=== PATIENT | female | born 1930 | race Caucasian/White ===

== ENCOUNTER 2018-07-15 18:02 | Emergency (ER) | payer MEDICARE, OTHER ==
[~2018-07-15] VITALS: Ht 157.5 cm; Wt 43.0 kg
[~2018-07-15 18:02] MED LIST: ALBU8.5H8 INH; CEFD300C37 PO; ESCI10TA10 PO; HYDR-3240 PO; LISI5TAB7 PO; LORA-445 PO; LORA1TAB PO
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
[2018-07-15 18:38] LABS: BASOPHILS # (AUTO) 0.02 x10^3/uL (0-0.1); BASOPHILS % (AUTO) 1 % (0-1); EOSINOPHILS # (AUTO) 0.16 x10^3/uL (0-0.4); EOSINOPHILS % (AUTO) 3 % (1-7); LYMPHOCYTES # (AUTO) 1.17 x10^3/uL (1-3.4); LYMPHOCYTES % (AUTO) 24 % (22-44); MD NO; MEAN CORPUSCULAR HEMOGLOBIN 30.6 pg (27.0-34.8); MEAN CORPUSCULAR HGB CONC 32.5 g/dL (32.4-35.8); MEAN CORPUSCULAR VOLUME 94.2 fL (80-100); MEAN PLATELET VOLUME 7.6 fL (7.4-10.4); MONOCYTES # (AUTO) 0.41 x10^3/uL (0.2-0.8); MONOCYTES % (AUTO) 8 % (2-9); NEUTROPHILS # (AUTO) 3.16 x10^3/uL (1.8-6.8); NEUTROPHILS % (AUTO) 64 % (42-75); PLATELET COUNT 221 x10^3/uL (130-400); RED BLOOD COUNT 3.34 x10^6/uL (3.82-5.3); RED CELL DISTRIBUTION WIDTH 18.1 % (9.6-15.2)
--- NOTE | 2018-07-15 18:43 | NUR ---
Straight cath UA sent to lab.
[2018-07-15 18:47] LABS: INTERNATIONAL NORMALIZED RATIO 0.95 (0.93-1.1)
[2018-07-15 18:50] LABS: ALANINE AMINOTRANSFERASE 20 U/L (12-78); ALBUMIN 3.1 g/dL (3.4-5.0); ANION GAP 7 mmol/L (5-15); CALCIUM 7.6 mg/dL (8.5-10.1); CHLORIDE 109 mmol/L (98-107); CREATININE 0.86 mg/dL (0.55-1.02); SALICYLATE LEVEL 2.2 mg/dL (2.8-20.0)
[2018-07-15 18:52] LABS: MICROSCOPIC NOT IND
[2018-07-15 18:53] LABS: ACETAMINOPHEN < 2 mcg/mL (10-30); ALKALINE PHOSPHATASE 114 U/L (45-117); BILIRUBIN,TOTAL 0.2 mg/dL (0.2-1.0); TOTAL PROTEIN 5.8 g/dL (6.4-8.2)
[2018-07-15 18:54] LABS: CULTURE INDICATED? NO
[2018-07-15 18:59] LABS: ACETONE, SERUM Negative (Negative)
[2018-07-15 19:10] LABS: AMPHETAMINE SCREEN, URINE Negative (Negative); BARBITURATE SCREEN, URINE Negative (Negative); BENZODIAZEPINE SCREEN, URINE Negative (Negative); CANNABINOID SCREEN, URINE Negative (Negative); COCAINE SCREEN, URINE Negative (Negative); METHADONE SCREEN, URINE Negative (Negative); OPIATE SCREEN, URINE Negative (Negative)
--- NOTE | 2018-07-15 19:55 | NUR ---
Voided via bed islas. Repositioned for comfort.
--- NOTE | 2018-07-15 20:24 | NUR ---
A&Ox3, but remains intoxicated. VSS.
[2018-07-15 20:25] VITALS: BP 139/58
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
--- NOTE | 2018-07-15 21:46 | NUR ---
Report to ARUN Vora.
--- NOTE | 2018-07-15 22:00 | NUR ---
report from sita assumed care of pt , pt sleeping at this time
--- NOTE | 2018-07-16 00:23 | NUR ---
ambulated to br and back without difficulty put clothes on, pt discharged to home via cab, pts girl friend keaton was called and notified that pt was on her way home
== END 2018-07-16 00:27 | disposition home or self-care (01) ==
LOC: ED 18:20
DX: F10.129 Alcohol abuse with intoxication, unspecified (principal); J44.9 Chronic obstructive pulmonary disease, unspecified
CPT/HCPCS: 36415; 80053; 80307; 80329; 81003; 82010; 83690; 85025; 85610; 93005; 99284; G0480

== ENCOUNTER 2018-08-14 16:37 | Observation (INO) | payer OTHER ==
[~2018-08-14] VITALS: Ht 165.1 cm; Wt 42.3 kg
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
--- NOTE | 2018-08-14 17:06 | NUR ---
patient leaving for ct scan
--- NOTE | 2018-08-14 17:07 | NUR ---
ct scan cancelled.
--- NOTE | 2018-08-14 17:15 | NUR ---
straight cath'd patient and urine taken to lab.
[2018-08-14 17:39] LABS: MICROSCOPIC NOT IND
[2018-08-14 17:39] LABS: ANION GAP 8 mmol/L (5-15); CALCIUM 8.2 mg/dL (8.5-10.1); CHLORIDE 103 mmol/L (98-107)
[2018-08-14 17:40] LABS: CREATININE 1.11 mg/dL (0.55-1.02)
[2018-08-14 17:41] LABS: CULTURE INDICATED? NO
[2018-08-14 17:42] LABS: AMPHETAMINE SCREEN, URINE Negative (Negative); BARBITURATE SCREEN, URINE Negative (Negative); BENZODIAZEPINE SCREEN, URINE Negative (Negative); CANNABINOID SCREEN, URINE Negative (Negative); COCAINE SCREEN, URINE Negative (Negative); METHADONE SCREEN, URINE Negative (Negative); OPIATE SCREEN, URINE Negative (Negative)
[2018-08-14 17:43] LABS: BASOPHILS # (AUTO) 0.02 x10^3/uL (0-0.1); BASOPHILS % (AUTO) 0 % (0-1); EOSINOPHILS # (AUTO) 0.04 x10^3/uL (0-0.4); EOSINOPHILS % (AUTO) 1 % (1-7); LYMPHOCYTES % (AUTO) 23 % (22-44); MD NO; MEAN CORPUSCULAR HEMOGLOBIN 29.9 pg (27.0-34.8); MEAN CORPUSCULAR HGB CONC 31.9 g/dL (32.4-35.8); MEAN CORPUSCULAR VOLUME 93.7 fL (80-100); MEAN PLATELET VOLUME 7.7 fL (7.4-10.4); MONOCYTES # (AUTO) 0.53 x10^3/uL (0.2-0.8); MONOCYTES % (AUTO) 8 % (2-9); NEUTROPHILS # (AUTO) 4.38 x10^3/uL (1.8-6.8); NEUTROPHILS % (AUTO) 68 % (42-75); PLATELET COUNT 443 x10^3/uL (130-400); RED BLOOD COUNT 3.68 x10^6/uL (3.82-5.3); RED CELL DISTRIBUTION WIDTH 17.1 % (9.6-15.2)
--- NOTE | 2018-08-14 17:52 | NUR ---
patient restless in bed. she is oriented x1 person. she has very mood swings.
--- NOTE | 2018-08-14 18:12 | NUR ---
patient resting off and on, when she wakes up she is restless.
--- NOTE | 2018-08-14 19:22 | NUR ---
Pt sleeping at this time. VSS.
--- NOTE | 2018-08-14 21:32 | NUR ---
Pt sleeping at this time. VSS.
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
[2018-08-15] MEDS ORDERED: SODIUM CHLORIDE FLUSH 10ML SYR IVF PRN (00:30)
--- NOTE | 2018-08-15 00:39 | NUR ---
Per hospitalist, BHARGAVI pt has no IV.
[2018-08-15 01:03] VITALS: BP_SYST 100; BP_SYST 103; BP_DIAS 47; BP_DIAS 59
[2018-08-15] MEDS ORDERED: ONDANSETRON 2MG/ML, 2ML IVPush PRN (01:30)
[2018-08-15] MEDS ORDERED: LORazepam 2 MG/ML, 1ML IVPush PRN (01:30)
[2018-08-15 06:45] VITALS: BP 145/70
[2018-08-15 13:26] LABS: ANION GAP 6 mmol/L (5-15); CALCIUM 8.8 mg/dL (8.5-10.1); CHLORIDE 101 mmol/L (98-107); CREATININE 1.12 mg/dL (0.55-1.02)
[2018-08-15 13:27] LABS: ALBUMIN 3.4 g/dL (3.4-5.0)
[2018-08-15 14:35] VITALS: BP 108/57
== END 2018-08-15 15:20 | disposition home or self-care (01) ==
LOC: ED 22:01 → EDIP 08-15 00:17 → INTOOBSV 08-15 00:17 → 3NW 08-15 00:47 → DCLOUNGE 08-15 15:00
PROVIDERS: ADMIT Internal Medicine; ATTEND Internal Medicine
DX: F10.221 Alcohol dependence with intoxication delirium (principal); F03.90 Unspecified dementia, unspecified severity, without behavioral disturbance, psychotic disturbance, mood disturbance, and anxiety; F41.1 Generalized anxiety disorder; J44.9 Chronic obstructive pulmonary disease, unspecified; Y90.8 Blood alcohol level of 240 mg/100 ml or more; Z72.0 Tobacco use
CPT/HCPCS: 36415; 80048; 80307; 81003; 82040; 85025; 97163; 99284; G0378

== ENCOUNTER → 2019-06-03 | Outpatient (CLI) | payer OTHER ==
[~2019-06-03] MED LIST changes: +OMNIPAQUE 350 MG/ML, 100ML BOTTLE ONE
== END | disposition home or self-care (01) ==
LOC: RAD 13:35
PROVIDERS: ATTEND Internal Medicine Endocrinology, Diabetes & Metabolism
DX: K44.9 Diaphragmatic hernia without obstruction or gangrene (principal); R91.1 Solitary pulmonary nodule; J84.10 Pulmonary fibrosis, unspecified; N20.0 Calculus of kidney; Z87.81 Personal history of (healed) traumatic fracture
CPT/HCPCS: 71260; 74160; Q9967

== ENCOUNTER 2019-12-01 03:13 | Inpatient (IN) | payer OTHER, MEDICAID ==
[2019-12-01] VITALS (9 sets, daily range): BP systolic 84–114; BP diastolic 40–58
[~2019-12-01] VITALS: Ht 167.6 cm; Wt 60.4 kg
[~2019-12-01 03:13] MED LIST changes: -OMNIPAQUE 350 MG/ML, 100ML BOTTLE ONE
[2019-12-01 03:51] LABS: MICROSCOPIC AUTO
[2019-12-01] MEDS ORDERED: CEFTRIAXONE PMX 1GM/50ML 50 ML IV ONE (04:00)
[2019-12-01] MEDS ORDERED: SODIUM CHLORIDE 0.9% 1,000ML IVBOLUS ONE ×3 (04:00→22:30)
[2019-12-01] MEDS ORDERED: CEFTRIAXONE PMX 1GM/50ML 50 ML ONE (04:04)
[2019-12-01 04:17] LABS: MEAN CORPUSCULAR HEMOGLOBIN 30.7 pg (27.0-34.8); MEAN CORPUSCULAR HGB CONC 32.9 g/dL (32.4-35.8); MEAN CORPUSCULAR VOLUME 93.3 fL (80-100); MEAN PLATELET VOLUME 8.9 fL (7.4-10.4); PLATELET COUNT 158 x10^3/uL (130-400); RED BLOOD COUNT 3.23 x10^6/uL (3.82-5.3); RED CELL DISTRIBUTION WIDTH 14.9 % (9.6-15.2)
[2019-12-01] MEDS ORDERED: ACETAMINOPHEN 500 MG TABLET ONE (04:26)
[2019-12-01] MEDS ORDERED: ACETAMINOPHEN 500 MG TABLET PO ONE (04:30)
[2019-12-01 04:32] LABS: CHLORIDE 103 mmol/L (98-107)
[2019-12-01 04:41] LABS: ALANINE AMINOTRANSFERASE 14 U/L (12-78); ALBUMIN 2.9 g/dL (3.4-5.0); ALKALINE PHOSPHATASE 120 U/L (45-117); BILIRUBIN,TOTAL 0.4 mg/dL (0.2-1.0); CALCIUM 8.4 mg/dL (8.5-10.1); CREATININE 1.68 mg/dL (0.55-1.02); MD YES; TOTAL PROTEIN 6.4 g/dL (6.4-8.2); TROPONIN I 0.031 ng/mL (0.000-0.045)
[2019-12-01 04:42] LABS: BAND#(MANUAL) 1.47 x10^3/uL; BANDS%(MANUAL) 7 % (0-7); LYMPH#(MANUAL) 1.89 x10^3/uL (1-3.4); LYMPHS% (MANUAL) 9 % (22-44); MONOS#(MANUAL) 0.42 x10^3/uL (0.3-2.7); MONOS% (MANUAL) 2 % (2-9); SEG#(MANUAL) 17.22 x10^3/uL (1.8-6.8); SEGS% (MANUAL) 82 % (42-75)
[2019-12-01 04:43] LABS: <PLATELET ESTIMATE> ADEQUATE; <PLT MORPHOLOGY> NORMAL PLT MORPH; <RBC MORPHOLOGY> NORMAL
[2019-12-01] MEDS ORDERED: SODIUM CHLORIDE 0.9% 1,000 ML IV ONE (04:54)
[2019-12-01 05:07] LABS: ANION GAP 8 mmol/L (5-15)
[2019-12-01] MEDS ORDERED: SODIUM CHLORIDE 0.9% 1,000 ML IV SCH (07:18)
[2019-12-01] MEDS ORDERED: ONDANSETRON 2MG/ML, 2ML IVPush PRN (07:30)
[2019-12-01] MEDS ORDERED: ACETAMINOPHEN 325 MG TABLET PO PRN (07:30)
[2019-12-01] MEDS ORDERED: LORazepam 2 MG/ML, 1ML IV PRN ×4 (07:30)
[2019-12-01] MEDS ORDERED: LORazepam 1MG TABLET PO PRN ×3 (07:30)
[2019-12-01] MEDS ORDERED: LORazepam 0.5MG TABLET PO PRN (07:30)
[2019-12-01] MEDS ORDERED: ONDANSETRON ODT 4 MG PO PRN (07:30)
[2019-12-01] MEDS: HEPARIN 5,000 UNITS/ML, 1ML SQ SCH ×2 (10:01→16:02)
[2019-12-01] MEDS: THIAMINE 100MG TABLET PO SCH ×2 (10:01→20:32)
[2019-12-01] MEDS: ALBUTEROL HFA 90 MCG/SPRAY INH SCH ×2 (15:30→19:15)
[2019-12-01 17:17] LABS: AMPHETAMINE SCREEN, URINE Negative (Negative); BARBITURATE SCREEN, URINE Negative (Negative); BENZODIAZEPINE SCREEN, URINE Negative (Negative); CANNABINOID SCREEN, URINE Negative (Negative); COCAINE SCREEN, URINE Negative (Negative); METHADONE SCREEN, URINE Negative (Negative); OPIATE SCREEN, URINE Negative (Negative)
[2019-12-01] MEDS: RISPERIDONE 0.5 MG TABLET PO SCH ×2 (18:25→19:23)
[2019-12-01] MEDS ORDERED: DIPHENHYDRAMINE 50 MG/ML, 1ML IVPush PRN (21:30)
[2019-12-01] MEDS: PIPERACILLIN/TAZO/PMX 3.375GM 50 ML IV SCH (21:58)
[2019-12-02 00:44] VITALS: BP 87/43
[2019-12-02] MEDS: HEPARIN 5,000 UNITS/ML, 1ML SQ SCH ×2 (01:55→08:44)
[2019-12-02] MEDS: ALBUTEROL HFA 90 MCG/SPRAY INH SCH (03:00)
[2019-12-02 03:04] VITALS: BP 149/60
[2019-12-02] MEDS ORDERED: ALBUTEROL SULFATE 2.5 MG/3 ML ONE (03:52)
[2019-12-02] MEDS ORDERED: CEFTRIAXONE PMX 1GM/50ML 50 ML IV SCH (04:00)
[2019-12-02 06:17] LABS: MEAN CORPUSCULAR HEMOGLOBIN 30.9 pg (27.0-34.8); MEAN CORPUSCULAR HGB CONC 32.3 g/dL (32.4-35.8); MEAN CORPUSCULAR VOLUME 95.6 fL (80-100); MEAN PLATELET VOLUME 9.3 fL (7.4-10.4); PLATELET COUNT 135 x10^3/uL (130-400); RED BLOOD COUNT 2.95 x10^6/uL (3.82-5.3); RED CELL DISTRIBUTION WIDTH 15.7 % (9.6-15.2)
[2019-12-02 06:40] LABS: MD YES
[2019-12-02 06:42] LABS: <RBC MORPHOLOGY> NORMAL; ALANINE AMINOTRANSFERASE 26 U/L (12-78); ALBUMIN 2.2 g/dL (3.4-5.0); ANION GAP 8 mmol/L (5-15); BAND#(MANUAL) 1.58 x10^3/uL; BANDS%(MANUAL) 8 % (0-7); CALCIUM 7.1 mg/dL (8.5-10.1); CHLORIDE 109 mmol/L (98-107); CREATININE 2.65 mg/dL (0.55-1.02); LYMPHS% (MANUAL) 2 % (22-44); MONOS#(MANUAL) 1.39 x10^3/uL (0.3-2.7); MONOS% (MANUAL) 7 % (2-9); SEG#(MANUAL) 16.43 x10^3/uL (1.8-6.8); SEGS% (MANUAL) 83 % (42-75)
[2019-12-02] MEDS: PIPERACILLIN/TAZO/PMX 3.375GM 50 ML IV SCH ×2 (06:42→14:19)
[2019-12-02 06:43] LABS: <PLATELET ESTIMATE> ADEQUATE; <PLT MORPHOLOGY> NORMAL PLT MORPH; TOXIC GRAN 1+
[2019-12-02 06:45] LABS: ALKALINE PHOSPHATASE 106 U/L (45-117); BILIRUBIN,TOTAL 0.3 mg/dL (0.2-1.0)
[2019-12-02 06:53] VITALS: BP 117/52
[2019-12-02] MEDS ORDERED: SODIUM CHLORIDE 0.9% 1,000 ML IV SCH (07:18)
[2019-12-02] MEDS: THIAMINE 100MG TABLET PO SCH (08:44)
[2019-12-02] MEDS ORDERED: DOXYCYCLINE 100 MG in DEXTROSE 5% 250 ML IV SCH (11:00)
[2019-12-02 12:03] VITALS: BP 128/51
[2019-12-02] MEDS ORDERED: MORPHINE SULFATE 4 MG/ML, 1ML IVPush PRN (16:00)
[2019-12-02] MEDS ORDERED: ATROPINE OPHTH SOLN 1%, 5ML PO PRN (16:00)
[2019-12-02] MEDS ORDERED: ONDANSETRON 2MG/ML, 2ML IVPush PRN (16:00)
[2019-12-02] MEDS ORDERED: SCOPOLAMINE 1MG PATCH TD PRN (16:00)
[2019-12-02] MEDS ORDERED: LORazepam 2 MG/ML, 1ML IVPush PRN (16:00)
[2019-12-02] MEDS: LORazepam 2 MG/ML, 1ML IVPush SCH ×2 (16:40→22:00)
[2019-12-02] MEDS: MORPHINE 30MG/30ML PCA.SYR IV PRN ×2 (17:30→22:40)
[2019-12-03] MEDS: LORazepam 2 MG/ML, 1ML IVPush SCH (03:41)
[2019-12-03] MEDS: MORPHINE 30MG/30ML PCA.SYR IV PRN (05:09)
== END 2019-12-03 10:05 | disposition expired | DRG 871 ==
LOC: ED 04:35 → EDIP 05:11 → UNDOADMIN 05:11 → 5SO 06:51 → 4EST 09:41 → 3N 12-02 23:39 → 4NW 12-03 07:41
PROVIDERS: ADMIT Student in an Organized Health Care Education/Training Program; ATTEND Internal Medicine
DX: A41.9 Sepsis, unspecified organism (principal); J18.9 Pneumonia, unspecified organism; J96.01 Acute respiratory failure with hypoxia; J96.02 Acute respiratory failure with hypercapnia; N17.0 Acute kidney failure with tubular necrosis; R65.21 Severe sepsis with septic shock; N39.0 Urinary tract infection, site not specified; N17.9 Acute kidney failure, unspecified; J44.1 Chronic obstructive pulmonary disease with (acute) exacerbation; E87.1 Hypo-osmolality and hyponatremia; E87.2 Acidosis; J44.0 Chronic obstructive pulmonary disease with (acute) lower respiratory infection; Z66 Do not resuscitate; F03.90 Unspecified dementia, unspecified severity, without behavioral disturbance, psychotic disturbance, mood disturbance, and anxiety; E88.09 Other disorders of plasma-protein metabolism, not elsewhere classified; F10.10 Alcohol abuse, uncomplicated; R73.9 Hyperglycemia, unspecified; R58 Hemorrhage, not elsewhere classified; F41.9 Anxiety disorder, unspecified; F32.9 Major depressive disorder, single episode, unspecified; B96.89 Other specified bacterial agents as the cause of diseases classified elsewhere; W18.30XA Fall on same level, unspecified, initial encounter; Z20.828 Contact with and (suspected) exposure to other viral communicable diseases
CPT/HCPCS: 36415; 36600; 70450; 70486; 71045; 72125; 80053; 80307; 81001; 82728; 82803; 83036; 83605; 83615; 84145; 84484; 85025; 86140; 87040; 87077; 87086; 87186; 87635; 93005; G0378; J0696; J1644; J2270; J2543; J7060; J2060; J7030